=== PATIENT | male | born 1960 | race American Indian/Alaskan Native ===

== ENCOUNTER 2018-09-13 07:55 | Day surgery (SDC) | payer OTHER ==
[2018-08-30 14:36] VITALS: BMI 23.1
[2018-09-13] MEDS ORDERED: Iohexol 240 (50 ml) ONE (10:35)
[2018-09-13] MEDS ORDERED: Lidocaine 2% Jelly (Uro-Jet) ONE (10:35)
[2018-09-13] MEDS ORDERED: cefTRIAXone 1 gm 1 GM/100 ML BAG IVPB ONE (10:35)
[2018-09-13] MEDS ORDERED: Midazolam 2 MG/2 ML VIAL ONE (10:39)
[2018-09-13] MEDS ORDERED: Propofol 10 mg/ml Inj (20 ML) ONE ×2 (10:39→10:57)
[2018-09-13] MEDS ORDERED: Oxycodone/Acetaminophen 5/325 mg Tab PO PRN (11:17)
[2018-09-13] MEDS ORDERED: Gentamicin 80 mg in 0.9% NS 80 MG/100 ML BAG IVPB SCH (11:30)
[2018-09-13 12:31] VITALS: BP 133/71; PULSE 63; RESP 16; TEMP 97.6; O2SAT 100
--- NOTE | 2018-09-13 17:06 | RAD ---
Date of service: 09/13/2018 PROCEDURE: HISTORY: HEMATURIA COMPARISON: None TECHNIQUE: Three images FINDINGS: Upholstery Bundler image shows a "high hyperdensity 3 mm approximately 3 cm lateral to the right L3 transverse process this also projects over the kidney as well as over the stool and mottled gas here. L4-5 and L5-S1 facet hypertrophic arthrosis-based on the lumbosacral appearance prominent spondylolysis and potential spondylolisthesis here is question no more sensitive lateral views are available from in this regards. A hyperdensity also projects over the right 5th L5 vertebrae in the region of the right L4-5 facets this is left lateral to the nondilated opacified right ureteral segment overseas series 1, image 3). A bone island is 1 consideration here. Bilateral hip osteoarthrosis-right os acetabuli-suspect. Cystic/geodes changes in the left superolateral acetabular and likely the left femoral head. Based on the femoral head neck portions visualize-a femoral acetabular impingement syndrome is a consideration. Diffuse mild bilateral lumbar marginal osteophytes noted. Upholstery Bundler does not show any obstructing urolithiasis. Nonobstructing a urolithiasis is not excluded as detailed above. However no gross filling defects on the opacified right pelvocaliceal system is appreciated. Some mild blunting of the major and minor calyces here are suggested. There is probably some minimal kinking of the right ureterovesical junction is well. The right ureter segmentally visualized and otherwise unremarkable in caliber. Segments that are visualized appear normal in contour. Portion of the opacified bladder dome is seen and is also small amount of contrast in the distal few cm of the left ureter which is unremarkable. IMPRESSION: No obstructing urolithiasis noted. Mild blunting of the right calices primarily the superior as above. No right hydroureter seen. No gross filling defects appreciated. Other findings as above.
--- NOTE | 2018-09-14 03:06 | OP ---
PROCEDURE DATE: 09/13/2018 UROLOGY OPERATIVE REPORT PREOPERATIVE DIAGNOSES: Hematuria, voiding dysfunction, irritative and obstructive urinary complaints. POSTOPERATIVE DIAGNOSES: Hematuria, voiding dysfunction, irritative and obstructive urinary complaints. PROCEDURE: Cystoscopy, bilateral retrograde pyelogram. COMPLICATIONS: There were no complications. BLOOD LOSS: Less than 10 mL. FINDINGS: 1. Normal anterior urethra. No strictures. 2. The verumontanum is visually occlusive. 3. Objectively, pretty big prostate for a 58-year-old [place], about 3 cm. Left ureteral orifice was identified with clear efflux. 4. No bladder cancer. 5. Essentially normal . Contrast does not fill out well for the left collecting system, good enough that I could see that it is normal, especially given the fact that we have upper tract imaging. INDICATIONS: See history and physical for the details. This is a very pleasant gentleman who is 58 years old with hematuria, persistent and is here now for the above testing. We have discussed location to do it, but the patient did not want it done anywhere else. So we brought him here with anesthesia. We needed medical clearance. DESCRIPTION OF PROCEDURE: After obtaining informed consent, the patient was placed on the table. Routine monitors were placed. A time-out was called to confirm the patient and positioning. The cystoscope was introduced via urethra. Normal anterior urethra. No strictures. Verumontanum is visually occlusive. It is pretty large for his age. Bilateral retrograde pyelograms were performed. Films were submitted for the radiologist. Again, the left side did not fill out while the right side filled out nicely, and there are no obvious abnormalities. The patient tolerated the procedure well. The bladder was emptied and cystoscope was removed. I used some lidocaine jelly for postop anesthesia, and we did a rectal exam afterwards. He has 20 to 30 g prostate, soft and smooth. Overall, the patient tolerated the procedure without complications. Regarding the hematuria, no further diagnostic study is needed as of now. We will explain to the patient and alter the patient the possibility for treatment for his prostate, for his irritative and obstructive complaints. Jose R Galvan MD [facility] # [id number]
--- NOTE | 2018-09-14 06:15 | HP ---
HISTORY OF PRESENT ILLNESS: This is a very pleasant 58-year-old gentleman who is here today for workup of hematuria. The patient is a very pleasant gentleman, took a lot of workup and preoperative surgical testing to prepare for today. He is here today for cystoscopy and retrograde pyelogram. PAST MEDICAL AND SURGICAL HISTORY: As listed on the chart. Saw a doctor for medical clearance, see all that as listed on the chart. MEDICATIONS: See the chart. ALLERGIES: NONE. SOCIAL HISTORY: Unremarkable. REVIEW OF SYSTEMS: As above. No weight loss, chest pain, or shortness of breath. There are no complaints. PHYSICAL EXAMINATION: GENERAL: A thin male, in no apparent distress. VITAL SIGNS: Within normal limits. LUNGS: Clear. ABDOMEN: Overall soft and nontender. No flank mass appreciated. GENITOURINARY: Normal male phallus without discharge. No testicular mass. RECTAL: A 20 g prostate, soft on exam. LABORATORY DATA: See chart. Urinalysis showed blood in the urine. Cytology pending. DIAGNOSES: Hematuria, voiding dysfunction, irritative and obstructive complaints. PLAN: The plan is as follows today; we will provide the patient antibiotic prophylaxis, cystoscopy and retrograde pyelogram. Further plans will follow. ADDENDUM: No obvious abnormalities. He has upper tract imaging retrograde within normal limits. Contrast did not go all the way up perfectly on the left side, but at this point, see the operative note for further details. We are just going to observe the patient now. Regarding the irritative and obstructive complaints, we will discuss with him the possibility for some intervention depending on how he does clinically. Jose R Galvan MD
== END 2018-09-13 13:15 | disposition home or self-care (01) ==
LOC: C.SDS 07:55
PROVIDERS: ATTEND Urology
DX: R31.9 Hematuria, unspecified (principal)
CPT/HCPCS: 52005; 74420; J0696; J1580; Q9966

== ENCOUNTER 2018-12-06 10:12 | Outpatient (CLI) | payer OTHER | END 2018-12-06 10:13 | disposition home or self-care (01) | LOC: C.CTH 10:13 | DX: Z12.2 Encounter for screening for malignant neoplasm of respiratory organs (principal); F17.200 Nicotine dependence, unspecified, uncomplicated ==